=== PATIENT | male | born 1965 | race Caucasian/White ===

== ENCOUNTER 2019-01-23 12:46 | Emergency (ER) | payer BC, OTHER ==
--- NOTE | 2019-01-23 13:20 | EDM.PDOC ---
ED HPI GENERAL MEDICAL PROBLEM - General Chief Complaint: Abdominal Pain Stated Complaint: RT FLANK PAIN Time Seen by Provider: 01/23/19 13:41 Source of Information: Reports: Patient History Limitations: Reports: No Limitations - History of Present Illness INITIAL COMMENTS - FREE TEXT/NARRATIVE: +53 years old male patient presented with a chief complaint of acute exacerbation of chronic right upper quadrant abdominal pain. History of neuro glioblastoma status post surgery. Patient stated that for the last 20 years he gets this recurrent episode of acute exacerbation of his chronic right upper quadrant pain. Usually respond to Dilaudid. Associated with nausea and vomiting. Denies any fever. Denies any chest pain shortness breath. Denies any cough. Denies any diarrhea or constipation. Denies any urinary symptom. 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 CA Genitourinary History: Reports: Other (See Below) Other Genitourinary History: 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 Musculoskeletal History: Reports: Back Pain, Chronic, Other (See Below) Other Musculoskeletal History: reocurrent right flank pain Oncologic (Cancer) History: Reports: Other (See Below) Other Oncologic History: ganglio neuro blastoma with radiation and surgery Social & Family History - Tobacco Use Smoking Status *Q: Current Every Day Smoker Years of Tobacco use: 30 Packs/Tins Daily: 0.5 - Caffeine Use Caffeine Use: Reports: Coffee - Alcohol Use Days Per Week of Alcohol Use: 2 Number of Drinks Per Day: 3 Total Drinks Per Week: 6 - Recreational Drug Use Recreational Drug Use: No ED ROS GENERAL - Review of Systems Review Of Systems: ROS reveals no pertinent complaints other than HPI. ED EXAM, GI/ABD - Physical Exam Exam: See Below Exam Limited By: No Limitations General Appearance: Alert, No Apparent Distress Head: Atraumatic, Normocephalic Neck: Normal Inspection, Supple Respiratory/Chest: No Respiratory Distress, Lungs Clear, Normal Breath Sounds, No Accessory Muscle Use, Chest Non-Tender Cardiovascular: Normal Peripheral Pulses, Regular Rate, Rhythm, No Edema, No Gallop, No Murmur GI/Abdominal Exam: Normal Bowel Sounds, Soft, Non-Tender, No Organomegaly, Other (right upper quadrant tenderness. No guarding or rebound.). No: No Distention, No Mass, Distended Course - Vital Signs Last Recorded V/S: Last Vital Signs Temp 36.7 C 01/23/19 17:25 Pulse 70 01/23/19 17:25 Resp 16 01/23/19 17:25 BP 142/91 H 01/23/19 17:25 Pulse Ox 99 01/23/19 17:25 - Orders/Labs/Meds Labs: Laboratory Tests 01/23/19 01/23/19 01/23/19 Range/Units 13:52 13:52 13:52 WBC 9.2 (4.5-11.0) K/uL RBC 5.30 (4.30-5.90) M/uL Hgb 16.5 H (12.0-15.0) g/dL Hct 47.2 (40.0-54.0) % MCV 89 (80-98) fL MCH 31 (27-31) pg MCHC 35 (32-36) % Plt Count 217 (150-400) K/uL Neut % (Auto) 74 H (36-66) % Lymph % (Auto) 16 L (24-44) % [place] % (Auto) 9 H (2-6) % Eos % (Auto) 1 L (2-4) % Baso % (Auto) 0 (0-1) % Sodium 140 (140-148) mmol/L Potassium 4.4 (3.6-5.2) mmol/L Chloride 104 (100-108) mmol/L Carbon Dioxide 26 (21-32) mmol/L Anion Gap 10.1 (5.0-14.0) mmol/L BUN 15 (7-18) mg/dL Creatinine 1.1 (0.8-1.3) mg/dL Est Cr Clr Drug Dosing 65.52 mL/min Estimated GFR (MDRD) > 60 (>60) Glucose 91 (74-106) mg/dL Lactic Acid 1.3 (0.4-2.0) mmol/L Calcium 9.6 (8.5-10.1) mg/dL Total Bilirubin 0.5 (0.2-1.0) mg/dL AST 15 (15-37) U/L ALT 25 (12-78) U/L Alkaline Phosphatase 85 (46-116) U/L C-Reactive Protein 0.01 (0.0-0.3) mg/dL Total Protein 7.1 (6.4-8.2) g/dL Albumin 3.7 (3.4-5.0) g/dL Globulin 3.4 (2.3-3.5) g/dL Albumin/Globulin Ratio 1.1 L (1.2-2.2) Lipase 1194 H (73-393) U/L Urine Color Urine Appearance Urine pH (4.5-8.0) Ur Specific [place] (1.008-1.030) Urine Protein (NEGATIVE) mg/dL Urine Glucose (UA) (NEGATIVE) mg/dL Urine Ketones (NEGATIVE) mg/dL Urine Occult Blood (NEGATIVE) Urine Nitrite (NEGAITVE) Urine Bilirubin (NEGATIVE) Urine Urobilinogen (NORMAL) mg/dL Ur Leukocyte Esterase (NEGATIVE) Urine RBC (0-5) Urine WBC (0-5) Ur Epithelial Cells Amorphous Sediment Urine Bacteria Urine Mucus 01/23/19 Range/Units 16:07 WBC (4.5-11.0) K/uL RBC (4.30-5.90) M/uL Hgb (12.0-15.0) g/dL Hct (40.0-54.0) % MCV (80-98) fL MCH (27-31) pg MCHC (32-36) % Plt Count (150-400) K/uL Neut % (Auto) (36-66) % Lymph % (Auto) (24-44) % [place] % (Auto) (2-6) % Eos % (Auto) (2-4) % Baso % (Auto) (0-1) % Sodium (140-148) mmol/L Potassium (3.6-5.2) mmol/L Chloride (100-108) mmol/L Carbon Dioxide (21-32) mmol/L Anion Gap (5.0-14.0) mmol/L BUN (7-18) mg/dL Creatinine (0.8-1.3) mg/dL Est Cr Clr Drug Dosing mL/min Estimated GFR (MDRD) (>60) Glucose (74-106) mg/dL Lactic Acid (0.4-2.0) mmol/L Calcium (8.5-10.1) mg/dL Total Bilirubin (0.2-1.0) mg/dL AST (15-37) U/L ALT (12-78) U/L Alkaline Phosphatase (46-116) U/L C-Reactive Protein (0.0-0.3) mg/dL Total Protein (6.4-8.2) g/dL Albumin (3.4-5.0) g/dL Globulin (2.3-3.5) g/dL Albumin/Globulin Ratio (1.2-2.2) Lipase (73-393) U/L Urine Color Yellow Urine Appearance Clear Urine pH 5.0 (4.5-8.0) Ur Specific [place] 1.025 (1.008-1.030) Urine Protein Negative (NEGATIVE) mg/dL Urine Glucose (UA) Normal (NEGATIVE) mg/dL Urine Ketones 50 H (NEGATIVE) mg/dL Urine Occult Blood Moderate (NEGATIVE) Urine Nitrite Negative (NEGAITVE) Urine Bilirubin Negative (NEGATIVE) Urine Urobilinogen Normal (NORMAL) mg/dL Ur Leukocyte Esterase Negative (NEGATIVE) Urine RBC 5-10 H (0-5) Urine WBC Not seen (0-5) Ur Epithelial Cells Rare Amorphous Sediment Not seen Urine Bacteria Few Urine Mucus Moderate Meds: Medications Discontinued Medications Generic Name Dose Route Start Last Admin Trade Name Jhonq PRN Reason Stop Dose Admin Hydromorphone HCl 1 mg 01/23/19 13:39 01/23/19 14:02 Dilaudid IVPUSH 01/23/19 13:40 1 mg ONETIME ONE Administration Hydromorphone HCl 1 mg 01/23/19 15:46 01/23/19 16:02 Dilaudid IVPUSH 01/23/19 15:47 1 mg ONETIME ONE Administration Sodium Chloride 1,000 mls @ 500 mls/hr 01/23/19 13:36 01/23/19 14:01 Normal Saline IV 01/23/19 15:35 500 mls/hr .BOLUS STA Administration Sodium Chloride 100 mls @ 0 mls/hr 01/23/19 16:15 01/23/19 16:28 Normal Saline IV 01/23/19 16:16 3 mls/hr ASDIRECTED STEVE Administration KVO Iopamidol 88 ml 01/23/19 16:15 01/23/19 16:30 Isovue-300 (61%) IV 01/23/19 16:16 88 ml . DIRECTED STEVE Administration Ondansetron HCl 4 mg 01/23/19 13:39 01/23/19 13:58 Zofran IVPUSH 01/23/19 13:40 4 mg ONETIME ONE Administration Sodium Chloride 10 ml 01/23/19 16:15 01/23/19 16:28 Saline Flush FLUSH 01/23/19 16:16 10 ml ONETIME ONE Administration - Re-Assessments/Exams Free Text/Narrative Re-Assessment/Exam: 01/23/19 13:46 patient was seen and examined shortly after arrival. Stable. 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 Given 1 L normal saline bolus. 4 mg IV Zofran and a milligram IV Dilaudid x 3. Lab and imaging reviewed with the patient.elevated lipase. Most likely alcohol related pancreatitis. Unfortunately with a not have any available beds. I did consulted with Dr. Smith hospitalist production support manager at the [facility] and he accepted the transfer for further management. Patient agrees with the plan. Stable for transfer. 01/23/19 18:48 Departure - Departure Time of Disposition: 18:50 Disposition: DC/Tfer to Acute Hospital 02 Condition: Fair Clinical Impression: Acute pancreatitis - Discharge Information Referrals: Elsie Ernandez PA [Primary Care Provider] - Forms: ED Department Discharge - Assessment/Plan Plan: transferred to [facility]
[2019-01-23] MEDS ORDERED: Sodium Chloride 0.9% 1,000 ML IV STA (13:36)
[2019-01-23] MEDS ORDERED: Ondansetron 4 MG/2 ML SDV IVPUSH ONE (13:39)
[2019-01-23] MEDS ORDERED: HYDROmorphone 1 MG/ML Syringe IVPUSH ONE ×3 (13:39→19:34)
[2019-01-23] MEDS ORDERED: Iopamidol 612 MG/ML 100 ML Bottle IV SCH (16:15)
[2019-01-23] MEDS ORDERED: Sodium Chloride 0.9% 100 ML IV SCH (16:15)
[2019-01-23] MEDS ORDERED: Sodium Chloride 0.9% 10 ML Syringe FLUSH ONE (16:15)
--- NOTE | 2019-01-23 17:53 | CRLCT ---
INDICATION: Abdominal pain TECHNIQUE: CT abdomen and pelvis acquired with 88 cc Omnipaque intravenous contrast. COMPARISON: None. FINDINGS: Lower chest: Mild upper posterior tilt of the sternum with a decreased size of the right hemithorax relative to the left. Liver: Normal in contour with 2 sub centimeter hypodense lesions. These are too small for characterization. Statistically speaking, in the absence of a known primary malignancy these would likely represent incidental findings. Gallbladder and bile ducts: Unremarkable. No stones or inflammation. No biliary dilatation. Pancreas: Multiple pancreatic calcifications consistent with chronic pancreatitis. Spleen: Unremarkable. Normal in size. No masses. Adrenal glands: Right adrenal gland is not seen. Status post right upper quadrant surgical clips at the expected level of the right adrenal gland. Left adrenal gland unremarkable. Kidneys: Atrophic right kidney with right renal cysts. Compensatory hypertrophy of left kidney with nonobstructing calculi, largest measuring 3 millimeters. GI tract: The stomach is unremarkable. There are no dilated loops of large or small intestine. Mild colonic diverticulosis without focal inflammation. Vasculature: Atherosclerosis without abdominal aortic aneurysm. Pelvis: Bladder is minimally distended. Bones: Somewhat diminutive thoracolumbar vertebrae which appear to be congenital. IMPRESSION: 1. Colonic diverticulosis without branden diverticulitis. 2. Atrophic right kidney with compensatory hypertrophy of left kidney. Nephrolithiasis without evidence of ureteral stone or hydronephrosis. 3. Pancreatic calcifications consistent with chronic pancreatitis. Please note that all CT scans at this facility use dose modulation, iterative reconstruction, and/or weight-based dosing when appropriate to reduce radiation dose to as low as reasonably achievable. Dictated by Villa Caputo MD @ Jan 23 2019 5:28PM Signed by Dr. Villa Caputo @ Jan 23 2019 5:51PM
== END 2019-01-23 20:17 ==
LOC: JP.ED 12:46
DX: K85.90 Acute pancreatitis without necrosis or infection, unspecified (principal); F17.210 Nicotine dependence, cigarettes, uncomplicated; Z88.0 Allergy status to penicillin
CPT/HCPCS: 36415; 74177; 80053; 81001; 83605; 83690; 85025; 86140; 96374; 96375; 96376; 99285; J1170; J2405; J7030; Q9967

== ENCOUNTER 2022-09-05 12:27 | Emergency (ER) | payer BC ==
[2022-09-05] MEDS ORDERED: HYDROmorphone 0.5 MG/0.5 ML Syringe IVPUSH ONE ×3 (13:46→15:01)
[2022-09-05] MEDS ORDERED: Sodium Chloride 0.9% 1,000 ML IV SCH (14:00)
[2022-09-05 14:38] LABS: ESTIMATED GFR 105 mL/min (>60); TROPONIN I HIGH SENSITIVITY < 4.0 pg/mL (<=60.3)
== END 2022-09-05 16:13 | disposition home or self-care (01) ==
LOC: JP.ED 12:27
DX: R10.9 Unspecified abdominal pain (principal); Z72.0 Tobacco use; Z88.0 Allergy status to penicillin; Z79.899 Other long term (current) drug therapy
CPT/HCPCS: 36415; 74176; 80053; 81001; 83605; 83690; 84484; 85025; 96361; 96374; 96376; 99283; 99284; J1170; J7030